=== PATIENT | female | born 2005 | race Caucasian/White ===

== ENCOUNTER 2024-02-28 18:37 | Emergency (ER) | payer OTHER, SELFPAY ==
[2024-02-28 18:39] VITALS: BP 129/84
--- NOTE | 2024-02-28 19:42 | ED.GENMED ---
History of Present Illness
General
Chief Complaint: Change in Mental Status
Source: patient and family
Exam Limitations: none
Time Seen by Provider: 02/28/24 19:18
Travel History
Have you had any contact with someone who has COVID-19?: No
Do you have any symptoms of coronavirus? Fever > 100 degrees, chills, cough, shortness of breath, sore throat, loss of taste or smell, muscle aches, or headache?: No
History of Present Illness
History of Present Illness:
See MDM
Past History
Past History
ED Past Medical History: Asthma and Psychiatric
ED Past Surgical History: None
Social History
Tobacco: Non-smoker
Alcohol: Occasional
Living: with family
Phy Exam
Physical Exam
Physical Exam:
See MDM
Course
Orders/Labs/Results
Orders:
Orders
02/28/24 18:46
Electrocardiogram (*1) Urgent
Reason for Study: Chest Pain
EKG- Treatment ONCE
02/28/24 19:36
Test Result ONCE
02/28/24 19:37
Lorazepam [Ativan] 1 mg IV NOW STA
02/28/24 19:59
Complete Blood Count/With Diff Urgent
Comprehensive Metabolic Panel Urgent
HCG, Serum Qualitative Screen Urgent
TSH Reflex To Free T4 Urgent
02/28/24 21:19
0.9% Sodium Chloride 500 ml [Nss] 500 ml IV BOLUS
Abnormal Lab Results
02/28/24
19:59
Hct 35.0 L %
(37.0-47.0)
Creatinine 0.5 L mg/dL
(0.6-1.0)
Glucose 110 H mg/dl
(70-99)
02/28/24 19:59
02/28/24 19:59
Vital Signs
Initial and Last Documented VS:
Initial Vital Signs
Temp Pulse Resp BP Pulse Ox
98.8 F 122 20 129/84 94
02/28/24 18:39 02/28/24 18:39 02/28/24 18:39 02/28/24 18:39 02/28/24 18:39
Last Documented Vital Signs
Temp Pulse Resp BP Pulse Ox
98.8 F 77 20 116/68 98
02/28/24 18:39 02/28/24 21:00 02/28/24 21:00 02/28/24 21:00 02/28/24 21:00
MDM/Problems Addressed
Differential Diagnosis Includes:
HPI and MDM Narrative:
19-year-old female presenting with multiple complaints. Mother at bedside. Patient has headache, palpitations and uncontrolled body trembling. Mother states that this has been an ongoing issue for the past 5 years and she has had a negative
workup with mannequin mounter and elevator operator freight. She has had a negative workup with a clinical program manager as well. She had seen psychiatry in the past and was placed on medicine to treat depression and fibromyalgia. It did work at some point but symptoms
have recurred. She is supposed to follow-up with neurology in the next several months.
On my exam, patient has full body trembling that improves when I have her perform certain physical exams. She has normal finger-nose bilaterally and normal [id number]. She is upset and tearful and anxious but shows no signs of significant
distress. She is expectedly tachycardic given her demeanor.
I had a long talk with the patient and mother at bedside. I discussed expecting a negative work in regards to blood work. We discussed low yield of CT head given no neurodeficits. She does have brain MRI scheduled in the next few weeks.
Discussed keeping that appointment. I had a long discussion indicating that I believe there could be a strong correlation to her mental health and discussed having her symptoms reevaluated by psychiatry
Physical exam
General: Tremulous and tearful
HEENT: protecting airway
Neck: supple
CV: No evidence of cyanosis. Tachycardic. No murmur
Resp: No accessory muscle use. Lungs clear
Abd: Non-distended
Extremities: No deformities
Neuro: alert. Tremors improve with purposeful movements of hand and feet. Normal finger-nose bilaterally. Normal [id number] bilaterally
Psych: Anxious
Skin: Intact
Problems Addressed including Acute and Chronic Conditions affecting care:
1. Tremors
Acuity: acute
Prognosis: stable
Details: Likely related to anxiety and mental health. Will obtain basic blood work including thyroid testing. Will give IV Ativan
Updates
Reassessment after fluids and Ativan, patient states he is feeling much better and feels comfortable going home
Differential Diagnosis (but not limited to): Anxiety, depression, panic attack, hyperthyroidism
Testing considered: CT head but there is no focal deficits
Drug therapy (if applicable): OTC meds, please see d/c instruction regarding Rx drugs
Amount and/or Complexity of Data Reviewed
Clinical info obtained from: Patient
External data reviewed: N/A
Labs I independently reviewed (but not limited to): Thyroid testing negative
Radiology: N/A
Pulse Ox: not hypoxic
EKG independently reviewed: Sinus tachycardia, normal axis, no STEMI
Cardiac Nurse: N/A
Critical Care: N/A
Risk of Complication:
Social Determinants of health: Good social support
Discussed with other providers: N/A
Escalation of Care includes Admit/Obs: After being observed in the Emergency Department, pt stable for discharge.
Occasional wrong word or 'sound a like' substitutions may have occurred due to the inherent limitations of voice recognition software. Read the chart carefully and recognize, using context, where substitutions have occurred.
*Critical Care Note
Total Time (30-74mins, 75-104mins- exclusive of procedures): Not Applicable
ED Attending Note
-
Portions of this chart may have been created with voice recognition software.� Occasional wrong word or��sound alike� substitutions may have occurred due to the inherent limitations of voice recognition software.
Discharge Plan
Departure
Patient Disposition: Home (Routine Discharge)
Date of Disposition: 02/28/24
Time of Disposition: 21:49
Patient with high blood pressure during this ER visit?: No
Discharge Problem:
Tremulousness
Prescriptions:
No Action
montelukast 10 MG tablet
10 mg PO DAILY
albuterol sulfate [Ventolin HFA] 90 MCG/PUFF HFA aerosol inhaler
1 puff inhalation PRN PRN (Reason: asthma)
fluticasone propionate 1 SPRAY spray,suspension
1 spray intranasal DAILY
levocetirizine [Xyzal] 5 MG tablet
5 mg PO DAILY
norethindrone-e.estradiol-iron [Lo Loestrin Fe] 1 EACH tablet
1 ea PO DAILY
escitalopram oxalate 10 MG tablet
10 mg PO DAILY
prednisone 20 MG tablet
20 mg PO BID Qty: 6 0RF
famotidine 20 MG tablet
20 mg PO BID Qty: 6 0RF
hydroxyzine HCl 25 MG tablet
25 mg PO QIDPRN PRN (Reason: itching) Qty: 20 0RF
Referrals:
Thelma Hodge DO [Family Provider] -
Activity Restrictions/Additional Instructions:
Please return for any worsening symptoms.
You may return at any time if you have further concerns.
Please follow up with your doctor at the first available appointment, preferably this week.
Thank you for choosing [facility].
Interventions
Interventions:
*Risk Screen - Suicide Last Done: 02/28/24 18:39
*General Assessment Last Done: 02/28/24 18:39
*Neglect/Abuse Screening Last Done: 02/28/24 18:39
*ED COVID-19 Vaccine History Last Done: 02/28/24 21:25
ED- Neurological Assessment Last Done: 02/28/24 20:54
ED Swallowing Screen Last Done: 02/28/24 20:54
Discharge Date and Time
Print Language: SLOVAK
[2024-02-28 20:01] VITALS: BP 134/78
[2024-02-28] MEDS: ATIVAN 1 MG IV (20:04)
[2024-02-28 20:14] LABS: % Basophils 0.9 % (0-2); % Eosinophils 4.5 % (0-6); % Immature Granulocytes 0.3 % (0-0.5); % Lymphocytes 29.2 % (20.5-51.1); % Monocytes 6.9 % (1.7-9.3); % Neutrophils 58.2 % (42.2-75.2); Absolute Basophils 0.1 10^3/uL (0-0.2); Absolute Eosinophils 0.3 10^3/uL (0-0.7); Absolute Lymphocytes 1.9 10^3/uL (1.2-3.4); Absolute Monocytes 0.5 10^3/uL (0.1-0.6); Absolute Neutrophils 3.8 10^3/uL (1.4-6.5); Mean Corp Hgb Conc. 34.3 g/dL (33.0-37.0); Mean Corpuscular Volume 81.6 fL (81.0-99.0); Mean Platelet Volume 9.7 fL (7.4-10.4); Nucleated Red Blood Cells % 0 %; Platelet Count 258 10^3/uL (130-400); Red Blood Cell Count 4.29 10^6/uL (4.20-5.40); Red Cell Dist. Width 12.5 % (11.5-14.5); White Blood Cell Count 6.5 10^3/uL (4.8-10.8)
[2024-02-28 20:26] LABS: HCG, Serum Qualitative Screen Negative
[2024-02-28 20:28] LABS: ALT (SGPT) 19 U/L (0-35); AST (SGOT) 20 U/L (14-36); Albumin 4.4 g/dl (3.5-5.0); Alkaline Phosphatase 53 U/L (38-126); Blood Urea Nitrogen 7 mg/dl (7-17); Calcium 9.5 mg/dl (8.4-10.2); Carbon Dioxide 25 mmol/L (22-30); Chloride 106 mmol/L (98-107); Glucose 110 mg/dl (70-99); Potassium 4.2 mmol/L (3.5-5.1); Sodium 139 mmol/L (135-145); Total Bilirubin 0.3 mg/dl (0.2-1.3); eGFR > 60.00
[2024-02-28 20:59] LABS: TSH Reflex To Free T4 1.16 uIU/ml (0.47-4.68)
[2024-02-28 21:00] VITALS: BP 116/68
[2024-02-28] MEDS: NSS 500 IV (21:23)
== END 2024-02-28 22:25 | disposition home or self-care (01) ==
LOC: EMR 18:37
PROVIDERS: EMERGENCY PHYSICIAN Student in an Organized Health Care Education/Training Program; FAMILY PHYSICIAN Family Medicine
DX: R25.1 Tremor, unspecified (principal)
CPT/HCPCS: 99284; 96374; 80053; 84443; 84703; 85025; 93005

== ENCOUNTER → 2024-03-25 17:26 | Outpatient (REF) | payer OTHER, SELFPAY | LOC: MRI 17:26 | PROVIDERS: ATTENDING PHYSICIAN Family Medicine | DX: R55 Syncope and collapse (principal) | CPT/HCPCS: 70553; A9575 ==

== ENCOUNTER → 2024-04-07 15:04 | Outpatient (REF) | payer OTHER, SELFPAY | LOC: HWRAD 15:04 | PROVIDERS: ATTENDING PHYSICIAN Obstetrics & Gynecology; FAMILY PHYSICIAN Family Medicine | DX: N94.6 Dysmenorrhea, unspecified (principal) | CPT/HCPCS: 76830; 76856 ==

== ENCOUNTER → 2024-04-08 14:21 | Outpatient (REF) | payer OTHER, SELFPAY | LOC: WDC 14:21 | PROVIDERS: ATTENDING PHYSICIAN Obstetrics & Gynecology; FAMILY PHYSICIAN Family Medicine | DX: N63.20 Unspecified lump in the left breast, unspecified quadrant (principal); N64.4 Mastodynia | CPT/HCPCS: 76642 ==

== ENCOUNTER → 2024-09-22 06:17 | Day surgery (SDC) | payer OTHER, SELFPAY | LOC: GI 06:17 | PROVIDERS: ATTENDING PHYSICIAN Internal Medicine | DX: R10.84 Generalized abdominal pain (principal); R19.7 Diarrhea, unspecified; R12 Heartburn; K20.0 Eosinophilic esophagitis | CPT/HCPCS: 45380; 43239; 88305; 88342 ==

== ENCOUNTER → 2024-11-30 15:04 | Outpatient (REF) | payer OTHER, SELFPAY | LOC: MRI 3T 15:04 | PROVIDERS: ATTENDING PHYSICIAN Obstetrics & Gynecology; FAMILY PHYSICIAN Family Medicine | DX: Q51.820 Cervical duplication (principal) | CPT/HCPCS: 72195 ==

== ENCOUNTER 2025-03-29 08:00 | Outpatient (RCR) | payer OTHER, SELFPAY | END 2025-03-29 23:59 | disposition home or self-care (01) | LOC: RPT 08:00 | PROVIDERS: ATTENDING PHYSICIAN Internal Medicine; FAMILY PHYSICIAN Family Medicine | DX: M62.89 Other specified disorders of muscle (principal); N39.3 Stress incontinence (female) (male); K59.00 Constipation, unspecified | CPT/HCPCS: 97110; 97140; 97163; 97530 ==

== ENCOUNTER 2025-04-04 06:33 | Day surgery (SDC) | payer OTHER, SELFPAY ==
[2025-03-28 09:32] VITALS: BMI 26.0
[2025-03-28 11:25] LABS: Hematocrit 36.4 % (37.0-47.0); Mean Corpuscular Hgb 27.3 pg (27.0-31.0); Mean Corpuscular Volume 82.7 fL (81.0-99.0); Mean Platelet Volume 10.3 fL (7.4-10.4); Platelet Count 285 10^3/uL (130-400); Red Cell Dist. Width 13.3 % (11.5-14.5); White Blood Cell Count 7.3 10^3/uL (4.8-10.8)
[2025-03-28 11:47] LABS: Blood Urea Nitrogen 7 mg/dl (7-17); Calcium 9.7 mg/dl (8.4-10.2); Carbon Dioxide 27 mmol/L (22-30); Chloride 108 mmol/L (98-107); Estimated Creatinine Clearance > 125 ml/min; Glucose 85 mg/dl (70-99); Potassium 4.6 mmol/L (3.5-5.1); Sodium 141 mmol/L (135-145); eGFR > 60.00
[2025-04-04] VITALS (9 sets, daily range): BP systolic 99–111; BP diastolic 50–69; BMI 26.0
[2025-04-04] MEDS: Pyridium 200 MG PO (08:40)
[2025-04-04] MEDS: NORMOSOL-R/PLASMALYTE-A 1000 IV (08:40)
[2025-04-04] MEDS: DILAUDID 0.25 MG IV ×2 (12:04→12:24)
== END 2025-04-04 14:30 | disposition home or self-care (01) ==
LOC: SDS 06:33
PROVIDERS: ATTENDING PHYSICIAN Obstetrics & Gynecology; FAMILY PHYSICIAN Family Medicine
DX: Q51.10 Doubling of uterus with doubling of cervix and vagina without obstruction (principal); N80.353 Endometriosis of bilateral pelvic sidewall, unspecified depth; N80.329 Endometriosis of the posterior cul-de-sac, unspecified depth; N94.6 Dysmenorrhea, unspecified; N92.0 Excessive and frequent menstruation with regular cycle; N30.80 Other cystitis without hematuria; R10.2 Pelvic and perineal pain; N39.3 Stress incontinence (female) (male)
CPT/HCPCS: 58662; 57130; 58558; 51715; 88305; 36415; 80048; 85027; 86850; 86900; 86901; 93005; C1713; C1776; J1580; L8606

== ENCOUNTER 2025-04-15 02:40 | Emergency (ER) | payer OTHER, SELFPAY ==
[2025-04-15 02:44] VITALS: BP 117/79
[2025-04-15 03:23] VITALS: BP 107/61
--- NOTE | 2025-04-15 03:36 | ED.GENMED ---
History of Present Illness
General
Chief Complaint: Vaginal Bleeding
Source: patient, records (Recent cystoscopy, vaginal septum excision, hysteroscopy with D&C laparoscopic excision of endometriosis, urethral bulking with bulkamid) and family
Exam Limitations: none
Time Seen by Provider: 04/15/25 03:26
Nursing documentation reviewed up to this point in time: agreed with
History of Present Illness
History of Present Illness:
20-year-old female reports vaginal bleeding that began at 1130 PM tonight. Recent Recent cystoscopy, vaginal septum excision, hysteroscopy with D&C laparoscopic excision of endometriosis, urethral bulking with bulkamid.
Past History
Past History
ED Past Medical History: Asthma and Psychiatric
ED Past Surgical History: None
Social History
Tobacco: Non-smoker
Alcohol: Occasional
Living: with family
Review of Systems
Review of Systems
Allergies reviewed?: Yes
All Other Systems: Not applicable
Constitutional: Reports no symptoms
EENT: Reports no symptoms
Respiratory: Reports no symptoms
Cardiac: Reports no symptoms
ABD/GI: Reports no symptoms
Musculoskeletal: Reports no symptoms
Skin: Reports no symptoms
Neurological: Reports no symptoms
Endocrine: Reports no symptoms
Hematologic/Lymphatic: Reports no symptoms
Psychiatric: Reports no symptoms
Phy Exam
Physical Exam
Physical Exam:
Mild tachycardia, abdomen soft nontender
Genitourinary Exam Female
Exam Female: vaginal bleeding
Vaginal Exam: blood
Vaginal Bleeding: clots and moderate
Visual exam of cervix: os closed
Uterus: normal size
Course
Orders/Labs/Results
Orders:
Orders
04/15/25 03:26
IV Insert/Care/Rem.- Treatment PRN
04/15/25 03:27
Test Result ONCE
04/15/25 03:50
Type+Screen Urgent
Complete Blood Count/With Diff Urgent
Comprehensive Metabolic Panel Urgent
HCG, Serum Qualitative Screen Urgent
04/15/25 04:02
US Pelvis W Transvag Combined Urgent
Comment:
Reason For Exam: vag bleeding s/p hysteroscopy, vag septum excisio
Abnormal Lab Results
04/15/25
03:50
RBC 4.01 L 10^6/uL
(4.20-5.40)
Hgb 10.9 L g/dL
(12.0-16.0)
Hct 32.4 L %
(37.0-47.0)
MCV 80.8 L fL
(81.0-99.0)
Absolute Monos (auto) 0.9 H 10^3/uL
(0.1-0.6)
Chloride 111 H mmol/L
(98-107)
04/15/25 03:50
04/15/25 03:50
Vital Signs
Initial and Last Documented VS:
Initial Vital Signs
Temp Pulse Resp BP
98.6 F 106 16 117/79
04/15/25 02:44 04/15/25 02:44 04/15/25 02:44 04/15/25 02:44
Last Documented Vital Signs
Temp Pulse Resp BP Pulse Ox
98.6 F 90 16 107/61 100
04/15/25 02:44 04/15/25 04:42 04/15/25 02:44 04/15/25 03:23 04/15/25 05:15
MDM/Problems Addressed
Differential Diagnosis Includes:
postop bleeding, menses
MDM/Problems Addressed:
20 yo female with vaginal bleeding. Likely return of menses. Will treat with
*Radiology
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
*Pulse Oximetry
Nasal Cannula flow liters per minute: 100
Oxygen Mode of Delivery: Room air
Patient hypoxic: no
*Critical Care Note
Total Time (30-74mins, 75-104mins- exclusive of procedures): Not Applicable
Patient Management
Social determinants of health affecting care: Living situation and Strong social support
Discussion with other providers: Groundskeeping Yardman (d/w Dr. Hendrix, recommends increasing norethindrone to 10 mg tid for 1 wk)
Escalation/DeEscalation of care consider admission/obs:
admit not indicated
ED Attending Note
-
Portions of this chart may have been created with voice recognition software.� Occasional wrong word or��sound alike� substitutions may have occurred due to the inherent limitations of voice recognition software.
Discharge Plan
Departure
Patient Disposition: Home (Routine Discharge)
Date of Disposition: 04/15/25
Time of Disposition: 06:41
Patient with high blood pressure during this ER visit?: No
Condition: Good
Discharge Problem:
Vaginal bleeding
Instructions: Heavy Periods (DC)
Prescriptions:
No Action
montelukast 10 MG tablet
10 mg PO HS
albuterol sulfate [Ventolin HFA] 90 MCG/PUFF HFA aerosol inhaler
1 puff inhalation PRN PRN (Reason: asthma)
fluticasone propionate 1 SPRAY spray,suspension
1 spray intranasal DAILY PRN (Reason: Allergies)
levocetirizine [Xyzal] 5 MG tablet
5 mg PO HS
sumatriptan succinate 25 mg Tablet
25 mg PO PRN PRN (Reason: Migraines)
acetaminophen 500 mg Tablet
1,000 mg PO Q6H PRN (Reason: pain)
lorazepam 0.5 mg Tablet
0.5 mg PO PRN PRN (Reason: Anxiety)
pantoprazole [Protonix] 40 mg Tablet,Delayed Release (Dr/Ec)
40 mg PO HS
lamotrigine 50 mg Tablet Extended Release 24hr
50 mg PO HS
guaifenesin [Mucinex] 600 mg Tablet Extended Release 12hr
600 mg PO Q12H PRN (Reason: Cough)
Jaya [place] Huha
1 cap PO Q48H
Thc
1 dose inhalation PRN PRN (Reason: pain, anxiety)
loratadine [Claritin] 10 mg Tablet
10 mg PO DAILY PRN (Reason: allergies)
Referrals:
UNKNOWN - PT DOES,NOT KNOW [Unknown Provider]
Mary Rodriguez MD [Active, Gynecology] - Call in 1-3 days for appt
Activity Restrictions/Additional Instructions:
increase norethindrone to 3 times a day for 1 week
Interventions
Interventions:
*Risk Screen - Suicide Last Done: 04/15/25 02:44
*General Assessment Last Done: 04/15/25 02:44
*Neglect/Abuse Screening Last Done: 04/15/25 02:44
*ED- Fall Risk Assessment Last Done: 04/15/25 02:44
*ED COVID-19 Vaccine History Last Done: 04/15/25 02:44
ED-Female Genitourinary Assessment Last Done: 04/15/25 04:40
Discharge Date and Time
Print Language: DANISH
[2025-04-15 04:14] LABS: Hematocrit 32.4 % (37.0-47.0); Hemoglobin 10.9 g/dL (12.0-16.0); Mean Corp Hgb Conc. 33.6 g/dL (33.0-37.0); Mean Corpuscular Volume 80.8 fL (81.0-99.0); Nucleated Red Blood Cells % 0 %; Platelet Count 327 10^3/uL (130-400); Red Cell Dist. Width 13.0 % (11.5-14.5)
[2025-04-15 04:21] LABS: HCG, Serum Qualitative Screen Negative
[2025-04-15 04:30] LABS: ALT (SGPT) 24 U/L (0-35); AST (SGOT) 18 U/L (14-36); Albumin 4.8 g/dl (3.5-5.0); Alkaline Phosphatase 71 U/L (38-126); Blood Urea Nitrogen 9 mg/dl (7-17); Calcium 9.7 mg/dl (8.4-10.2); Carbon Dioxide 23 mmol/L (22-30); Chloride 111 mmol/L (98-107); Glucose 95 mg/dl (70-99); Potassium 4.2 mmol/L (3.5-5.1); Sodium 142 mmol/L (135-145); Total Protein 7.4 g/dl (6.3-8.2); eGFR > 60.00
== END 2025-04-15 07:08 | disposition home or self-care (01) ==
LOC: EMR 02:40
PROVIDERS: EMERGENCY PHYSICIAN Emergency Medicine; FAMILY PHYSICIAN Family Medicine
DX: N93.9 Abnormal uterine and vaginal bleeding, unspecified (principal); J45.909 Unspecified asthma, uncomplicated
CPT/HCPCS: 99284; 76830; 76856; 80053; 84703; 85025; 86850; 86900; 86901

== ENCOUNTER 2025-05-05 12:43 | Outpatient (RCR) | payer OTHER, SELFPAY | END 2025-05-05 23:59 | disposition home or self-care (01) | LOC: RPT 12:43 | PROVIDERS: ATTENDING PHYSICIAN Internal Medicine; FAMILY PHYSICIAN Family Medicine | DX: M62.89 Other specified disorders of muscle (principal); N39.3 Stress incontinence (female) (male); K59.00 Constipation, unspecified; N94.89 Other specified conditions associated with female genital organs and menstrual cycle | CPT/HCPCS: 97164; 97530 ==

== ENCOUNTER 2025-05-19 13:30 | Outpatient (RCR) | payer OTHER, SELFPAY | END 2025-05-19 23:59 | disposition home or self-care (01) | LOC: RPT 13:30 | PROVIDERS: ATTENDING PHYSICIAN Internal Medicine; FAMILY PHYSICIAN Family Medicine | DX: M62.89 Other specified disorders of muscle (principal); N39.3 Stress incontinence (female) (male); K59.00 Constipation, unspecified; N94.89 Other specified conditions associated with female genital organs and menstrual cycle; Z73.6 Limitation of activities due to disability; R10.2 Pelvic and perineal pain | CPT/HCPCS: 97110; 97140; 97530 ==

== ENCOUNTER 2025-06-23 13:00 | Outpatient (RCR) | payer OTHER, SELFPAY | END 2025-06-23 23:59 | disposition home or self-care (01) | LOC: RPT 13:00 | PROVIDERS: ATTENDING PHYSICIAN Internal Medicine; FAMILY PHYSICIAN Family Medicine | DX: M62.89 Other specified disorders of muscle (principal); N39.3 Stress incontinence (female) (male); K59.00 Constipation, unspecified; N94.89 Other specified conditions associated with female genital organs and menstrual cycle; Z73.6 Limitation of activities due to disability; R10.2 Pelvic and perineal pain | CPT/HCPCS: 97112; 97140; 97530 ==

== ENCOUNTER 2025-07-28 10:20 | Outpatient (RCR) | payer OTHER, SELFPAY | END 2025-07-28 23:59 | disposition home or self-care (01) | LOC: RPT 10:20 | PROVIDERS: ATTENDING PHYSICIAN Internal Medicine; FAMILY PHYSICIAN Family Medicine | DX: M62.89 Other specified disorders of muscle (principal); N39.3 Stress incontinence (female) (male); K59.00 Constipation, unspecified; N94.89 Other specified conditions associated with female genital organs and menstrual cycle; Z73.6 Limitation of activities due to disability; R10.2 Pelvic and perineal pain; R10.20 Pelvic and perineal pain unspecified side | CPT/HCPCS: 97140; 97530 ==

== ENCOUNTER 2025-09-29 08:35 | Outpatient (RCR) | payer OTHER, SELFPAY | END 2025-09-29 23:59 | disposition home or self-care (01) | LOC: RPT 08:35 | PROVIDERS: ATTENDING PHYSICIAN Internal Medicine; FAMILY PHYSICIAN Family Medicine | DX: M62.89 Other specified disorders of muscle (principal); N39.3 Stress incontinence (female) (male); K59.00 Constipation, unspecified; N94.89 Other specified conditions associated with female genital organs and menstrual cycle; Z73.6 Limitation of activities due to disability; R10.20 Pelvic and perineal pain unspecified side; R10.2 Pelvic and perineal pain | CPT/HCPCS: 97014; 97140; 97530 ==